=== PATIENT | female | born 1935 | race Caucasian/White ===

== ENCOUNTER 2019-05-01 08:18 | Emergency (ER) | payer MEDICARE ==
--- NOTE | 2019-05-01 09:18 | EDM.PDOC ---
ED HPI GENERAL MEDICAL PROBLEM - General Chief Complaint: Bite:Animal, Insect Stated Complaint: BEE STING Time Seen by Provider: 05/01/19 09:00 Source of Information: Reports: Patient History Limitations: Reports: No Limitations - History of Present Illness INITIAL COMMENTS - FREE TEXT/NARRATIVE: 84-year-old female got stung on the hands several times yesterday and today has edema, swelling and itching of both hands and wrists especially the right side. No other symptoms. Onset: Sudden Duration: Hour(s): (Stung 24 hours ago) Location: Reports: Upper Extremity, Left, Upper Extremity, Right Quality: Reports: Burning, Other (Itching) Associated Symptoms: Reports: No Other Symptoms - Related Data Allergies Allergy/AdvReac Type Severity Reaction Status Date / Time No Known Allergies Allergy Verified 05/01/19 08:56 Home Meds: Home Meds Flecainide [Tambocor] 1 tab PO DAILY 05/01/19 [History] Metoprolol Tartrate 100 mg PO BEDTIME 05/01/19 [History] Simvastatin 1 tab PO DAILY 05/01/19 [History] Timolol Maleate 1 drop EYEBOTH DAILY 05/01/19 [History] Past Medical History HEENT History: Reports: Glaucoma Cardiovascular History: Reports: Afib, High Cholesterol, Hypertension PONDMAN History: Reports: Social & Family History - Tobacco Use Smoking Status *Q: Never Smoker - Alcohol Use Days Per Week of Alcohol Use: 7 Number of Drinks Per Day: 2 Total Drinks Per Week: 14 - Recreational Drug Use Recreational Drug Use: No ED ROS GENERAL - Review of Systems Review Of Systems: See Below Constitutional: Denies: Fever, Chills HEENT: Reports: No Symptoms Respiratory: Denies: Shortness of Breath Cardiovascular: Denies: Chest Pain GI/Abdominal: Denies: Nausea, Vomiting Skin: Reports: Erythema Neurological: Denies: Paresthesia ED EXAM, ANIMAL BITE - Physical Exam Exam: See Below Exam Limited By: No Limitations General Appearance: Alert, No Apparent Distress Throat/Mouth: Normal Inspection Head: Atraumatic Respiratory/Chest: No Respiratory Distress, Lungs Clear Extremities: Other (Patient has edema and redness and swelling of the right and left hand, somewhat worse on the right distal forearm and hand.) Course - Vital Signs Last Recorded V/S: Last Vital Signs Temp 95.6 F 05/01/19 08:55 Pulse 64 07/28/19 08:55 Resp 14 05/01/19 08:55 BP 194/82 H 05/01/19 08:55 Pulse Ox 97 05/01/19 08:55 - Re-Assessments/Exams Free Text/Narrative Re-Assessment/Exam: 05/01/19 11:42 Patient was reassured this is a typical local reaction to several bee stings, and is not indicative of an allergy. She was put on 40 mg of prednisone daily for the next 3-6 days, can continue with icing and elevation unless more systemic symptoms develop nothing further needs to be done. She will return if worsening. Departure - Departure Time of Disposition: :28 Disposition: Home, Self-Care 01 Clinical Impression: Accidental bee sting - Discharge Information Instructions: Bee, Wasp, or Hornet Sting, Adult Referrals: Rashmi Dodd PA [Primary Care Provider] - Forms: ED Department Discharge Care Plan Goals: Take 4 pills of prednisone with your first meal of the day for the next 2-5 days. Continue with Benadryl and cool compresses as needed, and return if worsening or concerns at any time, especially difficulty breathing.
== END 2019-05-01 09:28 | disposition home or self-care (01) ==
LOC: JP.ED 08:18
DX: T63.441A Toxic effect of venom of bees, accidental (unintentional), initial encounter (principal); I10 Essential (primary) hypertension; I48.91 Unspecified atrial fibrillation; Z79.899 Other long term (current) drug therapy; X58.XXXA Exposure to other specified factors, initial encounter
CPT/HCPCS: 99282; 99283